=== PATIENT | male | born 1935 | race Caucasian/White ===

== ENCOUNTER → 2017-09-16 | Outpatient (CLI) | payer MEDICARE, OTHER ==
[~2017-09-16] MED LIST: BREO ELLIPTA 11 EACH INH; CARVEDILOL3.125 MG PO; CLOPIDOGREL75 MG PO; LIPITOR 20 MG T20 M1 PO; LISINOPRIL5 MG PO; MIRALAX17 GM PO; NORVASC5 MG PO; OMEPRAZOLE40 MG PO; PREDNISONE 10 M10 MG PO; SPIRIVA INH; SPIRONOLACTONE25 M1 PO; TESSALON PERLE100 MG PO
--- NOTE | 2017-09-16 13:44 | 2DMMODE ---
[place] [address] 2 D/M-MODE ECHOCARDIOGRAM Name: JOSE CARLOS VILLALBA Room: [facility]#: [id number] Admission: 09/16/17 Attend Phys: Juan Valadez, Discharge: Date of : 39 Date of Service: 09/16/17 1344 Report #: [id number] THIS REPORT FOR: //name// APPROVED REPORT Study performed: 09/16/2017 08:48:33 EXAM: Comprehensive 2D, Doppler, and color-flow Echocardiogram BSA: 2.08 HR: 71 bpm BP: 160/90 mmHg Other Information Study Quality: Good Indications Congestive Heart Failure 2D Dimensions LVEF(%): 58.16 (>50%) IVSd: 13.63 (7-11mm) LVOT Diam: 22.94 (18-24mm) LVDd: 43.23 mm PWd: 11.34 (7-11mm) Ascending Ao: 32.00 (22-36mm) LVDs: 30.07 (25-40mm) Aortic Root: 28.85 mm Barba's LVEF: 58.16 % Volumes Left Atrial Volume (Systole) LA ESV Index: 26.10 mL/m2 Aortic Valve AoV Peak Ayden.: 1.00 m/s AO Peak Gr.: 4.02 mmHg LVOT Max P.28 mmHg AO Mean Gr.: 2.21 mmHg LVOT Mean P.10 mmHg LVOT Max V: 0.76 m/s AO V2 VTI: 17.40 cm LVOT Mean V: 0.48 m/s CASIE (VTI): 3.32 cm2 LVOT V1 VTI: 13.98 cm Mitral Valve E/A Ratio: 0.94 MV Decel. Time: 236.20 ms MV E Max Ayden.: 0.58 m/s MV PHT: 68.50 [place] [address] 2 D/M-MODE ECHOCARDIOGRAM Name: JOSE CARLOS VILLALBA Room: [facility]#: [id number] Admission: 09/16/17 Attend Phys: Juan Valadez, Discharge: Date of : 39 Date of Service: 09/16/17 1344 Report #: [id number] MVA (PHT): 3.21 cm2 TDI E/Lateral E': 3.63 E/Medial E': 8.29 Medial E' Ayden.: 0.07 m/s Lateral E' Ayden.: 0.16 m/s Pulmonary Valve PV Peak Ayden.: 1.02 m/s PV Peak Gr.: 4.18 mmHg Tricuspid Valve RAP Estimate: 5.00 mmHg TR Peak Gr.: 37.55 mmHg RVSP: 42.55 mmHg PA Pressure: 42.55 mmHg Left Ventricle The left ventricle is normal size. There is normal LV segmental wall motion. There is normal left ventricular wall thickness. Left ventricular systolic function is normal. The left ventricular ejection fraction is within the normal range. LVEF is 55-60%. Grade I - abnormal relaxation pattern. Right Ventricle The right ventricle is normal size. The right ventricular systolic function is normal. Atria The left atrium size is normal. The right atrium size is normal. Aortic Valve Mild aortic valve sclerosis. No aortic regurgitation is present. There is no aortic valvular stenosis. Mitral Valve The mitral valve is normal in structure. Trace mitral regurgitation. No evidence of mitral valve stenosis. Tricuspid Valve The tricuspid valve is normal in structure. Trace tricuspid regurgitation. Pulmonic Valve The pulmonary valve is normal in structure. There is no [place]mon[place] [address] 2 D/M-MODE ECHOCARDIOGRAM Name: JOSE CARLOS VILLALBA Room: [facility]#: [id number] Admission: 09/16/17 Attend Phys: Juan Valadez, Discharge: Date of : 39 Date of Service: 09/16/17 1344 Report #: [id number] Great Vessels The aortic root is normal in size. IVC is normal in size and collapses with >50% inspiration Pericardium There is no pericardial effusion. <Conclusion> The left ventricle is normal size. There is normal left ventricular wall thickness. Left ventricular systolic function is normal. The left ventricular ejection fraction is within the normal range. LVEF is 55-60%. Grade I - abnormal relaxation pattern. The right ventricle is normal size. The left atrium size is normal. Mild aortic valve sclerosis. No aortic regurgitation is present. The mitral valve is normal in structure. The tricuspid valve is normal in structure. Trace tricuspid regurgitation. IVC is normal in size and collapses with >50% inspiration There is no pericardial effusion. There is normal LV segmental wall motion. <ELECTRONICALLY SIGNED> By: Kiko Martinez MD, FACC 09/16/17 1344 1344 1344 Kiko Martinez MD, FACC /INF
== END ==
LOC: M.CRD 09-10 08:47
DX: I82.413 Acute embolism and thrombosis of femoral vein, bilateral (principal); R60.0 Localized edema

== ENCOUNTER 2018-02-28 09:47 | Inpatient (IN) | payer MEDICARE, OTHER ==
[~2018-02-28] VITALS: Ht 175.3 cm; Wt 88.9 kg
[2018-02-28] VITALS (16 sets, daily range): BP systolic 125–187; BP diastolic 70–100
[2018-02-28] MEDS ORDERED: PREDNISONE 10 M10 MG PO (10:15)
[2018-02-28] MEDS ORDERED: NORVASC5 MG PO (10:16)
[2018-02-28] MEDS ORDERED: TESSALON PERLE100 MG PO (10:16)
[2018-02-28] MEDS ORDERED: SPIRIVA INH (10:17)
[2018-02-28] MEDS ORDERED: BREO ELLIPTA 11 EACH INH (10:18)
[2018-02-28] MEDS ORDERED: OMEPRAZOLE40 MG PO (10:20)
[2018-02-28 11:09] LABS: ABSOLUTE MONOCYTES 1.2 thou/uL (0.0-1.2); ABSOLUTE NEUTROPHILS 6.2 thou/uL (1.6-8.1); BASOPHILS 0.2 %; EOSINOPHILS 0.4 %; HEMATOCRIT 45.6 % (42.0-52.0); HEMOGLOBIN 14.8 gm/dL (14.0-18.0); LYMPHOCYTES 11.7 %; MCH 27.7 pg (26.0-34.0); MCHC 32.5 g/dL (28.0-37.0); MCV 85.2 fL (80.0-100.0); MONOCYTES 13.8 %; NUCLEATED RBCS 0 /100WBC; PLATELET COUNT* 246 thou/uL (150-400); POLYS 73.9 %; RBC 5.35 mil/uL (4.50-6.00); RDW-CV 18.1 % (10.5-14.5); WBC 8.4 thou/uL (4.0-11.0)
[2018-02-28 11:31] LABS: CALCIUM 8.6 mg/dL (8.5-10.1); POTASSIUM 3.9 mmol/L (3.5-5.1)
[2018-02-28 11:35] LABS: ALBUMIN 3.3 g/dL (3.4-5.0); MAGNESIUM 1.9 mg/dL (1.8-2.4); TOTAL BILIRUBIN 0.5 mg/dL (<0.1-1.0); TOTAL PROTEIN 6.6 g/dL (6.4-8.2)
[2018-02-28 11:58] LABS: BE 0.8 mmol/L (-2 to +3); HCO3 24.9 mmol/L (22.0-26.0); PCO2 38.6 mmHg (35.0-45.0); PO2 79.4 mmHg (75.0-100.0); pH 7.428 (7.340-7.450)
[2018-02-28 12:09] LABS: APTT 25.8 Seconds (25.0-31.3); INR 1.1; PROTIME 10.8 Seconds (9.20-11.50)
[2018-02-28 12:17] LABS: TROPONIN-I LEVEL 0.14 ng/mL (<0.06)
[2018-02-28 12:38] LABS: URINE BILIRUBIN NEGATIVE (Negative); URINE BLOOD TRACE (Negative); URINE CLARITY CLEAR; URINE COLOR YELLOW; URINE GLUCOSE-RANDOM TRACE (Negative); URINE KETONES NEGATIVE (Negative); URINE LEUKOCYTES-REFLEX TRACE (Negative); URINE NITRITE-REFLEX NEGATIVE (Negative); URINE PROTEIN NEGATIVE (Negative); URINE SPECIFIC GRAVITY 1.015 (1.005-1.030); URINE UROBILINOGEN 0.2 E.U./dl (0.2-1.0)
[2018-02-28 12:47] LABS: SQUAMOUS NONE SEEN /LPF (0-3); URINE WBC-REFLEX 0-5 Rare /HPF (0-5)
[2018-02-28 12:48] LABS: BACTERIA-REFLEX None Seen /HPF (None Seen); CASTS None Seen /LPF (None Seen); CRYSTALS None Seen /LPF (None Seen); MUCUS None Seen strn/LPF (None Seen); URINE RBC None Seen /HPF (0-2)
--- NOTE | 2018-02-28 16:28 | NUR ---
1526 PATIENT RECEIVED PER CART FROM ER. SOA WITH EXERTION. SEE DOCUMENTED HISTORY AND ASSESSMENT
--- NOTE | 2018-02-28 17:32 | NUR ---
PATIENT RECEIVED FROM ER THIS AFTERNOON FOR SHORTNESS OF AIR. DIURESED CHARTED. DENIES CHEST PAIN. INSTRUCTED ON NPO AFTER MIDNIGHT AND TO NOTIFY NURSING OF ANY CHANGES OR CHEST PAIN. SCD'S OFF AT THIS TIME DUE TO PT C/O LEG CRAMPING
[2018-03-01] VITALS (21 sets, daily range): BP systolic 90–157; BP diastolic 51–85
--- NOTE | 2018-03-01 06:13 | NUR ---
PT REPORTS BREATHING MUCH BETTER. NO CHEST PAIN OR PRESSURE NOTED. PT SINUS RHYTHM ON MONITOR. HEART RATE AND BLOOD PRESSURE WITHIN NORMAL LIMITS. PT NPO PER CHEST PAIN PROTOCOL. NO ACUTE CHANGES, WILL CONTINUE TO MONITOR.
[2018-03-01 09:04] LABS: CALCIUM 9.1 mg/dL (8.5-10.1); MAGNESIUM 2.1 mg/dL (1.8-2.4); POTASSIUM 3.5 mmol/L (3.5-5.1); TROPONIN-I LEVEL 0.13 ng/mL (<0.06)
--- NOTE | 2018-03-01 14:14 | EKG ---
[place] [address] ELECTROCARDIOGRAM REPORT Name: JOSE CARLOS VILLALBA Room: [address] ADM IN M.R.#: [id number] Admission: 02/28/18 Attend Phys: Shereen Sapp Discharge: Date of : 39 Report #: [id number] THIS REPORT FOR: //name// [facility] ED Test Date: 2018-02-28 Test Time: 09:56:42 Pat Name: JOSE CARLOS VILLALBA Department: Room: [facility] Gender: M Dragger Out: JANEEN : 1935 Requested By: Celia Martínez Order Number: [id number] MD: Milton Ghosh Measurements Intervals [place] Rate: 108 P: 76 RI: 169 QRS: 18 QRSD: 99 T: 123 QT: 319 QTc: 428 Interpretive Statements Sinus tachycardia Probable left atrial enlargement septal infarct, old Nonspecific T abnormalities, lateral leads Baseline wander in lead(s) II,III,aVF No previous ECG available for comparison Electronically Signed On 03-01-2018 14:13:56 THRASHER FEEDER by Milton Ghosh [email or web address] <ELECTRONICALLY SIGNED> By: Milton Ghosh MD, FACC 03/01/18 1413 0956 0956 Milton Ghosh MD, [facility] /EPI
--- NOTE | 2018-03-01 14:20 | EKG ---
[place] [address] ELECTROCARDIOGRAM REPORT Name: TRAVISPAOLOJOSE CARLOS A Room: [address] ADM IN M.R.#: [id number] Admission: 02/28/18 Attend Phys: Shereen Sapp Discharge: Date of : 39 Report #: [id number] THIS REPORT FOR: //name// [facility] ED Test Date: 2018-02-28 Test Time: 14:07:42 Pat Name: JOSE CARLOS VILLALBA Department: Room: [address] Gender: M Recreational Vehicle Repairer: Felipe CURIEL : 1935 Requested By: Celia Martínez Order Number: [id number] Juanita MD: Milton Ghosh Measurements Intervals [place] Rate: 91 P: 58 NE: 165 QRS: -5 QRSD: 99 T: 119 QT: 363 QTc: 447 Interpretive Statements Sinus rhythm Atrial premature complex Anteroseptal infarct, old Abnrm T, consider ischemia, anterolateral leads Electronically Signed On 03-01-2018 14:19:58 ELECTRIC APPLIANCE INSTALLER by Milton Ghosh [email or web address] <ELECTRONICALLY SIGNED> By: Milton Ghosh MD, [facility] 03/01/18 1419 1407 140 Milton Ghosh MD, [facility] /EPI
--- NOTE | 2018-03-01 14:30 | EKG ---
[place] [address] ELECTROCARDIOGRAM REPORT Name: JOSE CARLOS VILLALBA Room: [address] ADM IN M.R.#: [id number] Admission: 02/28/18 Attend Phys: Shereen Sapp Discharge: Date of : 39 Report #: [id number] THIS REPORT FOR: //name// [facility] Test Date: 2018-03-01 Test Time: 07:50:51 Pat Name: JOSE CARLOS VILLALBA Department: Room: [address] Gender: M Livestock Sales Representative: KERMIT : 1935 Requested By: Milton Ghosh Order Number: [id number] Juanita MD: Milton Ghosh Measurements Intervals [place] Rate: 74 P: 50 DE: 168 QRS: -23 QRSD: 107 T: 146 QT: 417 QTc: 463 Interpretive Statements Sinus rhythm Probable anterior infarct, age indeterminate Lateral leads are also involved Baseline wander in lead(s) V2 Electronically Signed On 03-01-2018 14:29:54 COLOR PASTE MIXER by Milton Ghosh [email or web address] <ELECTRONICALLY SIGNED> By: Milton Ghosh MD, [facility] 03/01/18 1429 0750 0750 Milton Ghosh MD, FAC /EPI
--- NOTE | 2018-03-01 18:37 | NUR ---
PATIENT DENIES CHEST PAIN SOME SOA. UP TO BSC WO RESULT. DISCUSSED CARDIAC CATH WITH PATIENT AND FAMIILY. STATE UNDERSTANDING, TAKING PO WELL.
[2018-03-02] VITALS (32 sets, daily range): BP systolic 116–1444; BP diastolic 55–687
[2018-03-02 04:34] LABS: ANION GAP 7 mmol/L (7-16); BUN 25 mg/dL (7-18); CALCIUM 8.7 mg/dL (8.5-10.1); CHLORIDE 103 mmol/L (98-107); CHOLESTEROL 114 mg/dL (<200); CO2 32 mmol/L (21-32); GLUCOSE 118 mg/dL (70-99); HDL CHOLESTEROL 39 mg/dL (>40); LDL CHOLESTEROL 59 mg/dL (<100); POTASSIUM 4.1 mmol/L (3.5-5.1); SODIUM 142 mmol/L (136-145); TC:HDL 2.9 Ratio (Not establshd); TRIGLYCERIDE 80 mg/dL (<150); VLDL 16 mg/dL (<40)
[2018-03-02 04:46] LABS: SERUM ASSESSMENT CLEAR
--- NOTE | 2018-03-02 10:49 | NUR ---
ICU ROUNDS: RN IN-CHARGE OF PATIENT INFORMS THAT PATIENT TO GO TO [facility] TODAY. PATIENT TAKING P.O. MEDS WELL. NO OTHER CONCERNS AT THIS TIME. CM WILL REMAIN AVAILABLE TO ASSIST AND FOLLOW NEEDED.
--- NOTE | 2018-03-02 11:57 | EKG ---
[place] [address] ELECTROCARDIOGRAM REPORT Name: JOSE CARLOS VILLALBA Room: [address] ADM IN M.R.#: [id number] Admission: 02/28/18 Attend Phys: Shereen Sapp Discharge: Date of : 39 Report #: [id number] THIS REPORT FOR: //name// [facility] Test Date: 2018-03-02 Test Time: 11:13:22 Pat Name: JOSE CARLOS VILLALBA Department: Room: [address] Gender: M Auto Appraiser: : 1935 Requested By: Milton Ghosh Order Number: [id number] Juanita MD: Milton Ghosh Measurements Intervals [place] Rate: 85 P: 63 NM: 172 QRS: -1 QRSD: 103 T: 132 QT: 377 QTc: 449 Interpretive Statements Sinus rhythm Abnrm T, consider ischemia, anterolateral lds Compared to ECG 03/01/2018 07:50:51 no change Electronically Signed On 03-02-2018 11:56:57 HOT MILL WORKER by Milton Ghosh [email or web address] <ELECTRONICALLY SIGNED> By: Milton Ghosh MD, [facility] 03/02/18 1156 1113 1113 Milton Ghosh MD, [facility] /EPI
--- NOTE | 2018-03-02 14:17 | NUR ---
PT TRANSFERRED TO ROOM 231 FROM [facility]. RECEIVED REPORT FROM ARNOLDO HERNÁNDEZ. POST RADIAL CATH WITH STENT PLACEMENT. PT ALERT AND ORIETNED. PT ON 2L. IVF INFUSING PER ORDERS. PT DENIES ANY PAIN. PT INSTRUCTED ON POST CATH INSTRCUTIONS. PT COMMUNICATES UNDERSTADNING. CALL LIGHT IS WITHIN REACH. WILL CONTINUE TO MONTIOR FOR DURATION OF SHIFT.
--- NOTE | 2018-03-02 14:47 | NUR ---
PATIENT TO CATHLAB AT 0930. DENIED SOA OR DISTRESS. TRANSFED POST TO TELE SPOKE WITH
--- NOTE | 2018-03-02 17:00 | NUR ---
VSS. CARDIAC MONTOIRING IN PLACE WITH NO CHANGES THIS SHIFT. PT REMAINS ALERT AND ORIENTED. IVF INFUSING PER ORDERS. PT HAS NO COMPLAINTS OF PAIN OR DICOMFORT. PT COMPLETED POST CATH RECOVERY. RADIAL BAND DEFLATED BUT WILL BE LEFT IN PLACE X 2 HOUR -LIMB ALERT ON ARM FOR BP. MONREAL IN PLACE WITH RED OUTPUT NOTED. PT IS UP WITH ASSISTANCE TO BATHROOM. PT INFORMED OF PLAN OF CARE. CALL LIGHT IS WITHIN REACH. WILL CONTINUE TO MONITOR FOR DURATION OF SHIFT.
[2018-03-02 22:08] LABS: GLYCOHEMOGLOBIN (HGB A1C) 5.8 % (4.8-5.6)
[2018-03-03] VITALS: BP 122/63
[2018-03-03 04:00] VITALS: BP 130/69
--- NOTE | 2018-03-03 05:12 | NUR ---
END SHIFT: PT RESTED WELL. NO COMPLAINTS, NO PAIN. PT WAS UP AND WALKED HALLS THIS EVENING. REMAINS SR ON MONITOR. CLEAR TRANSPARENT DRESSING OVER RIGHT RADIAL CATH SITE. CLEAN, DRY, INTACT WITH MINIMAL BRUISING. 2+ PULSES NOTED. PT HAS HAD DRY HACKING COUGH AND REQUIRED 1 DOSE OF TESSALON PEARS. MONREAL IN PLACE DUE TO RETENTION. URINE IS VERY BLOOD TINGED. VSS. ASSESSMENT UNCHANGED. SAFETY PRECAUTIONS IN PLACE. CALL LIGHT IN REACH. PERFORMED HOURLY ROUNDING. WILL CONT TO MONITOR.
[2018-03-03 05:15] LABS: HEMATOCRIT 42.3 % (42.0-52.0); HEMOGLOBIN 13.6 gm/dL (14.0-18.0); MCH 27.4 pg (26.0-34.0); MCHC 32.2 g/dL (28.0-37.0); MCV 85.3 fL (80.0-100.0); MPV 7.8 fl. (7.2-11.1); RBC 4.96 mil/uL (4.50-6.00); RDW-CV 18.2 % (10.5-14.5); WBC 8.1 thou/uL (4.0-11.0)
[2018-03-03 05:41] LABS: CALCIUM 8.7 mg/dL (8.5-10.1); CREATININE 0.8 mg/dL (0.6-1.3); POTASSIUM 4.4 mmol/L (3.5-5.1); TROPONIN-I LEVEL 0.25 ng/mL (<0.06)
--- NOTE | 2018-03-03 10:01 | EKG ---
[place] [address] ELECTROCARDIOGRAM REPORT Name: JOSE CARLOS VILLALBA Room: [address] ADM IN M.R.#: [id number] Admission: 02/28/18 Attend Phys: Shereen Sapp Discharge: Date of : 39 Report #: [id number] THIS REPORT FOR: //name// [facility] Test Date: 2018-03-03 Test Time: 08:06:28 Pat Name: JOSE CARLOS VILLALBA Department: Room: [facility] Gender: M Micro Lab Analyst: KERMIT : 1935 Requested By: Milton Ghosh Order Number: [id number] Reading MD: Gen Pradhan Measurements Intervals [place] Rate: 85 P: 50 VT: 167 QRS: -21 QRSD: 103 T: 112 QT: 359 QTc: 427 Interpretive Statements Sinus rhythm Borderline left axis deviation Abnormal T, consider ischemia, lateral leads Compared to ECG 03/02/2018 11:13:22 T-wave abnormality now present Possible ischemia still present Electronically Signed On 03-03-2018 10:01:20 FUR COMBER by Gen Pradhan [email or web address] <ELECTRONICALLY SIGNED> By: Gen Pradhan MD, FACC 03/03/18 1001 0806 Gen Pradhan MD, [facility] /EPI
--- NOTE | 2018-03-03 10:17 | NUR ---
ASSUMED PT CARE AT 0700 PT IS ALERT AND ORIENTED X 4 PT DENIES PAIN OR SOA ON RA, PT IS UP SBA PT IS NOT A FALL RISK, PT IS SR ON THE MONITOR, PT HAS MEDICATION AT BEDSIDE THIS NURSE EDUCATED PT THAT HE CAN NOT TAKE THESE MEDS WITHOUT ORDERS HAS ORDERS FOR INHALERS NOT THE PILLS INCLUDING AMLODIPINE THIS NURSE EDUCATED PT THAT INHALERS NEED TO GO TO PHARMACY AND THEN INTO PT BOX PT REFUSED FOR INHALERS TO GO INTO PT BOX IN [place] WANTS TO KEEP AT BEDSIDE PT STATES HE TOOK AMLODIPINE EDUCATED PT AGAIN NOT TO TAKE THIS MEDICATION WITHOUT ORDERS SPOKE WITH PHYSICIAN WHO STOPPED AMLODIPINE PHYSICIAN IS AWARE OF POSSIBLE AMLODIPINE INGESTION, WILL CONTINUE TO MONITOR
[2018-03-03 11:31] VITALS: BP 137/65
[2018-03-03 15:59] VITALS: BP 106/64
--- NOTE | 2018-03-03 16:52 | CARD ---
[address] [address] CARDIAC CATH REPORT Name: JOSE CARLOS VILLALBA Room: [address] IN [facility]#: [id number] Admission: 02/28/18 Attend Phys: Shereen Sapp Discharge: Date of : 39 Report #: [id number] THIS REPORT FOR: //name// APPROVED REPORT Study performed: 03/02/2018 09:18:45 Patient Details Patient Status: In-Patient Room #: The patient is a 82 year-old male Event Personnel Milton Ghosh Car Racer, Celia Sosa RN Care Transition Manager, Kerri Bautista RN Care Transition Manager, Maria D Bravo RTR Monitor, Avril Domingo AUTOMOBILE OR TRUCK RENTAL DISPATCHER Scrub Procedures Performed Art Access - R radial artery Left Heart Cath w/or w/o Coronaries [facility] w/wo Plasty Addl BR OM 3rd C9601 DESADDL Indication Abnormal ECG, Dyspnea, Chest pain Risk Factors Hypertension Admission/Lab Medications/Medications given during procedure Glycoprotein IllbIlla Inhibitors, Heparin Unfract. Procedure Narrative The patient was brought electively to the Cardiac Catheterization Laboratory and was prepped and draped in a sterile manner. The right wrist was infiltrated with 2% Lidocaine subcutaneous anesthesia. A Slender Glidesheath sheath was inserted into the right radial artery. Coronary angiography was performed using coronary diagnostic catheters. The right coronary system was accessed and visualized with a Diagnostic 6Fr JR4 catheter. The left coronary system was accessed and visualized with a Diagnostic 6Fr JL4 catheter. The left ventricle was accessed and visualized with a Diagnostic 6Fr angled pigtail catheter. Left ventricular/Aortic Valve gradient assessed via catheter pullback. Left ventriculogram was performed in TYSON projection. Closure device was deployed with a 6 Fr Vasc-Band Reg 24cm. The patient tolerated the procedure well and there were no [facility] [address] [place] [address] CARDIAC CATH REPORT Name: JOSE CARLOS VILLALBA Room: [address] IN [facility]#: [id number] Admission: 02/28/18 Attend Phys: Shereen Sapp Discharge: Date of : 39 Report #: [id number] complications associated with the procedure. There was no hematoma. Intraoperative Conscious Sedation Sedation start time: 10:21 Case end Time: 11:03 Versed 1 mg Fluoro Time: 4.9 minutes Dose: DAP 46951 cGycm2 1305 mGy Contrast Type and Amount: Omnipaque 125 ml Coronary Angiography The patient's coronary anatomy is co- dominant. Diagnostic Cath Left Main 0% stenosis LAD 95% proximal stenosis, 90% mid stenosis with retrograde filling of apical lad by collaterals from distal rca OM3 90% mid stenosi Right Coronary 30% proximal stenosis R PDA 80% mid and 90% distal stenosis Ramus 40% mid stenosis noted Left Ventriculography The left ventricular ejection fraction is estimated to be 30-35%. There is 1+ mitral insufficiency. severs hypokinesis noted of distal anterior wall and apex Hemodynamics The aortic pressure is 113/64 mmHg with a mean of 85 mmHg. The left ventricular pressure is 118/10 mmHg with a mean of mmHg. The left ventricular end diastolic pressure is 12 mmHg. There was no gradient across the aortic valve upon pullback. Pullback from the left ventricle to the aorta revealed no gradient across the aortic valve. PCI Technique Lesion Anticoagulation was achieved with Heparin. iv aggrastat given Percutaneous coronary intervention was performed on the third obtuse marginal branch segment. The lesion stenosis prior to intervention was 90% with NICK 3 flow. A 6FR XB 3.5 100CM Guide Catheter was used to engage the lm ostium. A BMW 190cm Interventional Guidewire was used to cross the lesion. [place] [address] CARDIAC CATH REPORT Name: JOSE CARLOS VILLALBA Room: [address]#: [id number] Admission: 02/28/18 Attend Phys: Shereen Sapp Discharge: Date of : 39 Report #: [id number] A Balloon catheter Trek RX 2.5 X 8 was inserted and inflated up to 6.00atm for 8seconds. Repeat angiography revealed the following post-dilatation results: 30% stenosis. Additional Inflation: 15.00atm for 14seconds. Additional Inflation: 15.00atm for 9seconds. STENT DEPLOYMENT A drug-eluting stent Xience Madie 3.0X15mm was inserted and inflated up to 15.00atm for 13seconds. Repeat angiography revealed the following post-stent deployment results: 0% stenosis. Additional Inflation: 20.00atm for 14seconds. Additional Inflation: 22.00atm for 13seconds. Final angiography reveals 0 % stenosis with NICK 3 flow. Conclusion 1. LV ejection fraction 30-35% 2. 95% proximal and 90% mid lad stenosis and apical lad had retrograde flow form distal rca collaterals 3. 90% stenosis of 3rd OM branch 4. 80% mid and 90% distal of PDA branch of RCA 5. successful placment of drug eluting stent in 3rd OM branch Recommendations return to lab at a later date for stenting of lad Medications Administered Clopidogrel <ELECTRONICALLY SIGNED> By: Milton Ghosh MD, FACC 03/03/18 165 50 1651Dshraddha Ghosh MD, FACC /INF
[2018-03-04] VITALS (23 sets, daily range): BP systolic 113–153; BP diastolic 58–110
[2018-03-04 02:07] LABS: FREE TESTOSTERONE 8.6 pg/mL (6.6-18.1)
--- NOTE | 2018-03-04 06:20 | NUR ---
VITALS WNL. SEE MAR. SEE CHARTING. FALL PRECAUTIONS IN PLACE. HOURLY ROUNDING FOR SAFETY.
--- NOTE | 2018-03-04 11:57 | NUR ---
CONTINUE TO FOLLOW, MET WITH . PT IN FINANCIAL INTERN. PER , THEY JUST RETURNED FROM [place]. REPORTS PT HAVING DIFFICULTY ON TRIP WHICH WAS NO USUAL FOR HIM. HE IS USUALLY INDEPENDENT AND ACTIVE, USES NO EQUIPMENT. PLAN IS FOR HIM TO RETURN HOME AT [place]. WILL FOLLOW
--- NOTE | 2018-03-04 14:33 | EKG ---
[place] [address] ELECTROCARDIOGRAM REPORT Name: JOSE CARLOS VILLALBA Room: [address] ADM IN M.R.#: [id number] Admission: 02/28/18 Attend Phys: Shereen Sapp Discharge: Date of : 39 Report #: [id number] THIS REPORT FOR: //name// [facility] Test Date: 2018-03-04 Test Time: 10:54:58 Pat Name: JOSE CARLOS VILLALBA Department: Room: [address] Gender: M Acetylene Torch Operator: : 1935 Requested By: Milton Ghosh Order Number: [id number] Juanita MD: Milton Ghosh Measurements Intervals [place] Rate: 81 P: 72 [place]: 180 QRS: 34 QRSD: 102 T: 113 QT: 378 QTc: 439 Interpretive Statements Sinus rhythm Borderline low voltage, extremity leads Abnrm T, consider ischemia, anterolateral lds Compared to ECG 03/03/2018 08:06:28 no change Electronically Signed On 03-04-2018 14:33:35 SHIP'S OFFICER by Milton Ghosh [email or web address] <ELECTRONICALLY SIGNED> By: Milton Ghosh MD, [facility] 03/04/18 1433 1054 1054 Milton Ghosh MD, [facility] /EPI
[2018-03-05] VITALS: BP 124/65
[2018-03-05 04:00] VITALS: BP 127/79
[2018-03-05 04:53] LABS: HEMATOCRIT 40.1 % (42.0-52.0); HEMOGLOBIN 12.9 gm/dL (14.0-18.0); MCH 27.2 pg (26.0-34.0); MCHC 32.1 g/dL (28.0-37.0); MCV 84.5 fL (80.0-100.0); MPV 7.5 fl. (7.2-11.1); RBC 4.75 mil/uL (4.50-6.00); RDW-CV 17.8 % (10.5-14.5); WBC 6.3 thou/uL (4.0-11.0)
[2018-03-05 05:26] LABS: CALCIUM 8.6 mg/dL (8.5-10.1); CREATININE 0.8 mg/dL (0.6-1.3); POTASSIUM 4.5 mmol/L (3.5-5.1); TROPONIN-I LEVEL 0.48 ng/mL (<0.06)
--- NOTE | 2018-03-05 06:39 | NUR ---
VITALS WNL. SEE MAR. SEE CHARTING. FALL PRECAUTIONS IN PLACE. HOURLY ROUNDING FOR SAFETY.
[2018-03-05 08:00] VITALS: BP 136/68
[2018-03-05] MEDS ORDERED: LIPITOR 20 MG T20 M1 PO (10:46)
[2018-03-05] MEDS ORDERED: CARVEDILOL3.125 MG PO (10:47)
[2018-03-05] MEDS ORDERED: MIRALAX17 GM PO (10:48)
[2018-03-05] MEDS ORDERED: CLOPIDOGREL75 MG PO (10:49)
[2018-03-05] MEDS ORDERED: LISINOPRIL5 MG PO (10:50)
[2018-03-05] MEDS ORDERED: SPIRONOLACTONE25 M1 PO (10:52)
[2018-03-05 11:26] VITALS: BP 144/75
--- NOTE | 2018-03-05 12:06 | NUR ---
VSS, ASSUMED CARE IN THE AM, ASSESSMRNT PERFORMED AND CHARTED, FALL PRECAUTIONS IN PLACE AND CALL LIGHT IN REACH, PT IS A&O4 ON RA, IS TRACING SR ON THE MONITOR, DENIES ANY PAIN, CATH SITE IS C/D/I, I HAVE PROVITED D/C INSTRUCTIONS TOOK OFF MONITOR, AND TOOK OUT IV, PT DENIES ANY PAIN, PT WALKED OUT WITH SON TO CAR. I PROVITED MED SCRIPTS AND COMPLETED HOURLY ROUNDS.
--- NOTE | 2018-03-09 10:19 | CARD ---
[address] [address] CARDIAC CATH REPORT Name: JOSE CARLOS VILLLABA Room: [address] IN [facility]#: [id number] Admission: 02/28/18 Attend Phys: Shereen Sapp Discharge: 03/05/18 Date of : 39 Report #: [id number] THIS REPORT FOR: //name// APPROVED REPORT Study performed: 03/04/2018 08:54:46 Patient Details Patient Status: In-Patient Room #: 231 The patient is a 82 year-old male Event Personnel Milton Ghosh [employer], Celia Sosa RN Computing Tutor, Mercedes Burgess, Avril Domingo Scrub Procedures Performed Art Access - R radial artery SHARON Place w/wo Plasty Single LAD [id number] Hemostasis with Hemoband Indication Abnormal ECG, Dyspnea, Cardiomyopathy Risk Factors Hypercholesterolemia, Coronary Artery DiseaseHypertension Previous Procedures/Diagnoses Previous PCI Admission/Lab Medications/Medications given during procedure Heparin Unfract. Procedure Narrative The patient was brought electively to the Cardiac Catheterization Laboratory and was prepped and draped in a sterile manner. The right wrist was infiltrated with 2% Lidocaine subcutaneous anesthesia. A Slender Glidesheath sheath was inserted into the right radial artery. Coronary angiography was performed using coronary diagnostic catheters. The left coronary system was accessed and visualized with a xblad 3.5 catheter. Left ventricular/Aortic Valve gradient assessed via catheter pullback. Closure device was deployed with a 6 Fr Vasc-Band Reg 24cm. The patient tolerated the procedure well and there were no complications associated with the procedure. There was no hematoma. Intraoperative Conscious Sedation [address] [address] CARDIAC CATH REPORT Name: JOSE CARLOS VILLALBA Room: [address]#: [id number] Admission: 02/28/18 Attend Phys: Shereen Sapp Discharge: 03/05/18 Date of : 39 Report #: [id number] Sedation start time: 09:35 Case end Time: 10:45 Versed 1 mg Fluoro Time: 11.8 minutes Dose: DAP [id number] cGycm2 2601.27 mGy Contrast Type and Amount: Visipaque 180 ml Coronary Angiography The patient's coronary anatomy is co- dominant. Diagnostic Cath Left Main 0% stenosis LAD 95% proximal and 95% mid stenosis. The apical lad filled by retrograde collaterals from the rca. OM3 proximal stent had no restenosis Right Coronary no arteriogram performed. See cath from 03-02-18 Left Ventriculography Left Ventriculography was not performed. Hemodynamics The aortic pressure is 110/61 mmHg with a mean of mmHg. The left ventricular pressure is 108/10 mmHg with a mean of mmHg. The left ventricular end diastolic pressure is 12 mmHg. There was no gradient across the aortic valve upon pullback. Pullback from the left ventricle to the aorta revealed no gradient across the aortic valve. PCI Technique Lesion Anticoagulation was achieved with Heparin. Patient was preloaded with Plavix. Percutaneous coronary intervention was performed on the proximal left anterior descending artery segment. The lesion stenosis prior to intervention was 95% with NICK 3 flow. A 6F XB LAD 3.5 Guide Catheter was used to engage the lm ostium. A IG: BMW 190cm Interventional Guidewire was used to cross the lesion. BALLOON DILATION A Balloon catheter 2.0 x 8 mm was inserted and inflated up to 18.00atm for 10seconds. Repeat angiography revealed the following post-dilatation results: 50% stenosis. STENT DEPLOYMENT A drug-eluting stent Keegan RX Stent [id number] was inserted and inflated up to 7.00atm for 13seconds. Repeat [place] [address] CARDIAC CATH REPORT Name: JOSE CARLOS VILLALBA Room: [address]#: [id number] Admission: 02/28/18 Attend Phys: Shereen Sapp Discharge: 03/05/18 Date of : 39 Report #: [id number] following post-stent deployment results: 0% stenosis. Additional Inflation: 8.00atm for 11seconds. Additional Inflation: 10.00atm for 13seconds. Final angiography reveals 0 % stenosis with NICK 3 flow. STENT DEPLOYMENT A drug-eluting stent Keegan RX Stent 2.0X12mm was inserted and inflated up to 9atm for 15seconds. Additional Inflation: 9atm for 8seconds. Additional Inflation: 12atm for 14seconds. 14 jennifer x 13 seconds PCI Technique Lesion 2 Percutaneous Coronary Intervention was performed on the mid left anterior descending artery segment. Patient was preloaded with Plavix. Percutaneous coronary intervention was performed on the mid left anterior descending artery segment. The lesion stenosis prior to intervention was 95% with NICK 3 flow. A 6F XB LAD 3.5 Guide Catheter was used to engage the ostium. A IG: BMW 190cm Interventional Guidewire was used to cross the lesion. Balloon Dilation A Balloon catheter Mini Trek RX 2.0 X 8 was inserted and inflated up to 8.00atm for 2seconds. Repeat angiography revealed the following post-dilatation results: 50% stenosis. Additional Inflation: 8.00atm for 8seconds. Stent Deployment A drug-eluting stent [place] RX Stent [id number] was inserted and inflated up to 10.00atm for 11seconds. Repeat angiography revealed the following post-stent deployment results: 0% stenosis. Additional Inflation: 12.00atm for 18seconds. After stent deployment, 80% stenosis noted in distal lad beyond the stent Final angiography reveals 0 % stenosis with NICK 3 flow. PCI Technique Lesion 3 Percutaneous Coronary Intervention was performed on the distal left anterior descending artery segment. Patient was preloaded with Plavix. Percutaneous coronary intervention was performed on the distal left anterior descending artery segment. The lesion stenosis prior to intervention was 80% with NICK 3 flow. A xblad3.5 Guide Catheter was used to engage the lm ostium. A prowater flex Interventional Guidewire was used to cross the lesion. Balloon Dilation Unable to advance BMW wire beyond stent in mid lad[place] [address] CARDIAC CATH REPORT Name: JOSE CARLOS VILLALBA Room: [address] IN M.R.#: [id number] Admission: 02/28/18 Attend Phys: Wilma MillsShereen Abarca Discharge: 03/05/18 Date of : 39 Report #: [id number] enter a stent strut. Stent Deployment A drug-eluting stent 2.0 x 12 mm was inserted and inflated up to 9atm for 15seconds. Repeat angiography revealed the following post-stent deployment results: 0% stenosis. Final angiography reveals 0 % stenosis with NICK 3 flow. Conclusion 1. no restenosis noted of stent in the circumflex artery 2. placement of a single drug eluting stent in the proximal lad, and 2 stents in the mid lad Recommendations Cardiac Rehabilitation Referral Aggressive Medical Therapy <ELECTRONICALLY SIGNED> By: Milton Ghosh MD, FACC 03/09/18 1018 [id number] Ghosh MD, FACC /INF
--- NOTE | 2018-03-09 13:08 | CON ---
[address] [address] CONSULTATION Name: JOSE CARLOS VILLALBA Room: [address]#: [id number] Admission: 02/28/18 Attend Phys: Shereen Sapp Discharge: 03/05/18 Date of : 39 Report #: [id number] THIS REPORT FOR: //name// CC: Juan Melchor DATE OF SERVICE: 03/01/2018 HISTORY OF PRESENT ILLNESS: The patient is an 82-year-old male who I was asked to see in the hospital today after he complained of being short of breath. The patient has no previous history of heart disease. He does have a history of asthma and has used an inhaler in the past. He notes he recently went on a trip to [place]. While he was there, when he would go for walks, he would get short of breath and felt some chest heaviness. He has noticed dry cough. He denied any fever, chills or edema. When he returned, he went to see Dr. Valadez last week and was given Z-MATHEW. However, he continued to be short of breath. He finally came to the Emergency Room yesterday. He was noted to have an abnormal ECG. Cardiology consultation was requested. He denies chest heaviness radiating down his arms or up into his jaw. He has had no nausea. He denied any swelling of his feet, palpitations or syncope. PAST MEDICAL HISTORY: Significant for no surgical procedures. He does have a history of hypertension. He has a history of polycythemia, undergoes periodic phlebotomy by Dr. Miller. MEDICATIONS ON ADMISSION: Include prednisone which he was started on recently Tessalon Perles, amlodipine, Spiriva inhaler, Breo, omeprazole. ALLERGIES: He has no known drug allergies. FAMILY HISTORY: Negative for heart disease. SOCIAL HISTORY: He is . He is originally from [place]. He still works as a tailor. Quit smoking years ago. No alcohol abuse. REVIEW OF SYSTEMS: He has had no history of stroke. He does have asthma. No history of peptic ulcer disease, liver disease, kidney disease, cancer, psychiatric illness, chronic skin condition. PHYSICAL EXAMINATION: GENERAL: Revealed an elderly male, lying in bed, appeared in no acute distress. VITAL SIGNS: He had a blood pressure of 140/70, pulse 70. He was afebrile. HEENT: Anicteric. Conjunctivae pink. Mucous membranes moist. NECK: Veins do not appear distended. No carotid bruits. Neck supple. CHEST: [place] [address] CONSULTATION Name: JOSE CARLOS VILLALBA Room: [address]#: [id number] Admission: 02/28/18 Attend Phys: Shereen Sapp Discharge: 03/05/18 Date of : 39 Report #: [id number] CARDIAC: Regular rate and rhythm. ABDOMEN: Soft, nontender. EXTREMITIES: Had no edema. SKIN: Warm and dry. NEUROLOGIC: Nonfocal. LYMPH: No adenopathy. MUSCULOSKELETAL: No joint effusion. His ECG shows a sinus rhythm, evidence of previous septal infarction with nonspecific T-wave changes. His chest x-ray done yesterday showed calcified aortic arch, small effusions, atelectasis. He underwent a CT scan of the chest using a PE protocol that showed no pulmonary embolus, coronary calcifications, pulmonary edema, hyperinflated lung mendoza, small nodules. LABORATORY DATA: BUN 21, creatinine 1.0. Liver function studies are normal. Troponin 0.19. BNP 3746. White blood cell count 8.4, hemoglobin 14.8. He had urinalysis, trace glucose, trace blood, trace leukocytes. IMPRESSION AND RECOMMENDATIONS: 1. Pulmonary edema. Recommend Lasix. 2. Abnormal ECG. History of angina. Recommend cardiac catheterization. 3. Hypertension. The patient has been on a calcium uma. 4. History of polycythemia with previous phlebotomy. <ELECTRONICALLY SIGNED> By: Milton Ghosh MD, FACC 03/09/18 1308 [id number] Jeanette Ghosh MD, FACC /nt
== END 2018-03-05 12:15 | disposition home or self-care (01) | DRG 246 ==
LOC: M.ERS 09:47 → M.ICU 14:26 → M.2W 14:26 → EDBD 14:26 → M.2W 14:26 → M.TBA-ER 14:26 → M.ICU 15:28 → M.TBA-CV 03-02 12:34 → M.2W 03-02 12:55
PROVIDERS: Internal Medicine Cardiovascular Disease; Personal Emergency Response Attendant; ADMIT Internal Medicine
DX: I21.4 Non-ST elevation (NSTEMI) myocardial infarction (principal); J96.01 Acute respiratory failure with hypoxia; I50.21 Acute systolic (congestive) heart failure; I42.9 Cardiomyopathy, unspecified; N40.0 Benign prostatic hyperplasia without lower urinary tract symptoms; J44.9 Chronic obstructive pulmonary disease, unspecified; I25.10 Atherosclerotic heart disease of native coronary artery without angina pectoris; Z79.899 Other long term (current) drug therapy; I11.0 Hypertensive heart disease with heart failure; K59.00 Constipation, unspecified; Z86.718 Personal history of other venous thrombosis and embolism; Z87.891 Personal history of nicotine dependence; Z82.49 Family history of ischemic heart disease and other diseases of the circulatory system; Z79.82 Long term (current) use of aspirin

== ENCOUNTER → 2019-06-03 | Outpatient (CLI) | payer MEDICARE, OTHER ==
[2019-06-03 08:59] LABS: ABSOLUTE MONOCYTES 1.1 thou/uL (0.0-1.2); ABSOLUTE NEUTROPHILS 4.4 thou/uL (1.6-8.1); BASOPHILS 0.2 %; EOSINOPHILS 0.4 %; HEMATOCRIT 44.7 % (42.0-52.0); HEMOGLOBIN 14.7 gm/dL (14.0-18.0); LYMPHOCYTES 15.6 %; MCH 26.7 pg (26.0-34.0); MCHC 32.8 g/dL (28.0-37.0); MCV 81.4 fL (80.0-100.0); MONOCYTES 17.4 %; MPV 7.2 fl. (7.2-11.1); NUCLEATED RBCS 0 /100WBC; PLATELET COUNT* 216 thou/uL (150-400); POLYS 66.4 %; RBC 5.49 mil/uL (4.50-6.00); WBC 6.6 thou/uL (4.0-11.0)
[2019-06-03 09:18] LABS: ALBUMIN 3.2 g/dL (3.4-5.0); ALKALINE PHOSPHATASE 72 U/L (46-116); ANION GAP 8 mmol/L (7-16); BUN 15 mg/dL (7-18); CALCIUM 8.3 mg/dL (8.5-10.1); CHLORIDE 105 mmol/L (98-107); CHOLESTEROL 85 mg/dL (<200); CO2 29 mmol/L (21-32); GLUCOSE 110 mg/dL (70-99); HDL CHOLESTEROL 33 mg/dL (>40); LDL CHOLESTEROL 43 mg/dL (<100); NT-PRO BRAIN NAT PEPTIDE 774 pg/mL (<300); SERUM ASSESSMENT Clear; SGOT 17 U/L (15-37); SGPT 20 U/L (30-65); SODIUM 142 mmol/L (136-145); TC:HDL 2.6 Ratio (Not establshd); TOTAL BILIRUBIN 0.6 mg/dL (<0.1-1.0); TOTAL PROTEIN 7.6 g/dL (6.4-8.2); TRIGLYCERIDE 49 mg/dL (<150); VLDL 10 mg/dL (<40)
== END ==
LOC: M.RAD 08:04
PROVIDERS: Nurse Practitioner
DX: J98.4 Other disorders of lung (principal); I25.5 Ischemic cardiomyopathy; I50.22 Chronic systolic (congestive) heart failure; E78.00 Pure hypercholesterolemia, unspecified